=== PATIENT | female | born 1990 | race Caucasian/White ===

== ENCOUNTER → 2023-10-08 | Outpatient (CLI) | payer OTHER | LOC: M SLEEP 10:38 | PROVIDERS: ATTEND Psychiatry & Neurology Neurology | DX: R56.9 Unspecified convulsions (principal) ==

== ENCOUNTER 2023-10-26 19:50 | Emergency (ER) | payer OTHER ==
[~2023-10-26] VITALS: Ht 165.1 cm; Wt 90.5 kg
[2023-10-26 21:28] LABS: HEMATOCRIT 43.8 % (36.0-47.0); HEMOGLOBIN 16.3 g/dl (12.0-15.5); MEAN CORPUSCULAR HEMOGLOBIN 33.3 pg (27.0-33.0); MEAN CORPUSCULAR VOLUME 89.6 fl (80.0-96.0); PLATELET COUNT, AUTOMATED 318 10^3/uL (150-450); RED BLOOD COUNT 4.89 10^6/uL (4.00-5.40)
[2023-10-26 21:38] LABS: MEAN CORPUSCULAR HGB CONC 37.2 g/dl (32.0-36.5)
[2023-10-26 22:16] LABS: ALBUMIN 3.4 G/DL (3.2-5.2); ALKALINE PHOSPHATASE 67 U/L (46-116); ALT/SGPT 25 U/L (7.0-40); AST/SGOT 13 U/L (<34); BILIRUBIN,TOTAL 0.3 MG/DL (0.3-1.2); BLOOD UREA NITROGEN 5 MG/DL (9-23); CALCIUM LEVEL 9.2 MG/DL (8.5-10.1); CARBON DIOXIDE LEVEL 27 MMOL/L (20-31); CHLORIDE LEVEL 107 MMOL/L (98-107); GLOMERULAR FILTRATION RATE > 60.0 (>60); GLUCOSE, FASTING 92 MG/DL (60-100); POTASSIUM SERUM 2.9 MMOL/L (3.5-5.1); SODIUM LEVEL 142 MMOL/L (136-145)
[2023-10-26 22:48] LABS: MAGNESIUM LEVEL 1.8 MG/DL (1.8-2.4)
[2023-10-26] MEDS: KCL 10MEQ/100ML SWI (KRUN) 10 MEQ in IV 1 EA IV ONE (22:49)
[2023-10-26] MEDS: POTASSIUM CHLORIDE 10MEQ SR TABLET PO ONE (22:49)
[2023-10-26] MEDS: NS 1,000 ML IV ONE (22:49)
[2023-10-27 01:50] VITALS: BP 124/70; TEMP 98.2; O2SAT 99
== END 2023-10-27 02:16 | disposition home or self-care (01) ==
LOC: M ED 19:50
DX: E86.0 Dehydration (principal); R94.31 Abnormal electrocardiogram [ECG] [EKG]; E87.6 Hypokalemia; J45.909 Unspecified asthma, uncomplicated; M54.50 Low back pain, unspecified; G43.909 Migraine, unspecified, not intractable, without status migrainosus; G40.89 Other seizures; Z88.8 Allergy status to other drugs, medicaments and biological substances; Z88.6 Allergy status to analgesic agent; Z91.040 Latex allergy status; Z91.041 Radiographic dye allergy status

== ENCOUNTER 2023-12-21 14:37 | Inpatient (IN) | payer OTHER ==
[~2023-12-21] VITALS: Ht 165.1 cm; Wt 86.4 kg
[2023-12-21] MEDS ORDERED: NAPR220C23 PO (15:24)
[2023-12-21 15:56] LABS: BASO # 0.1 10^3/uL (0.0-0.2); BASO % 0.2 % (0.0-1.0); EOS % 0.1 % (0.0-3.0); HEMATOCRIT 51.4 % (36.0-47.0); HEMOGLOBIN 18.2 g/dl (12.0-15.5); LYMPH # 1.8 10^3/uL (1.5-5.0); LYMPH % 7.1 % (24.0-44.0); MEAN CORPUSCULAR HGB CONC 35.4 g/dl (32.0-36.5); MEAN CORPUSCULAR VOLUME 93.1 fl (80.0-96.0); MONO # 0.7 10^3/uL (0.0-0.8); MONO % 2.9 % (2.0-8.0); NEUTROPHILS # 22.3 10^3/uL (1.5-8.5); NEUTROPHILS % 89.1 % (36.0-66.0); PLATELET COUNT, AUTOMATED 385 10^3/uL (150-450); RED BLOOD COUNT 5.52 10^6/uL (4.00-5.40); WHITE BLOOD COUNT 25.1 10^3/uL (4.0-10.0)
[2023-12-21 16:31] LABS: HCG, SERUM QUALITATIVE NEGATIVE (NEGATIVE); LIPASE 26 U/L (12-53)
[2023-12-21 16:33] LABS: ALBUMIN 3.6 G/DL (3.2-5.2); ALKALINE PHOSPHATASE 78 U/L (46-116); ALT/SGPT 21 U/L (7.0-40); AST/SGOT 16 U/L (<34); BILIRUBIN,DIRECT 0.2 MG/DL (<0.4); BILIRUBIN,TOTAL 0.5 MG/DL (0.3-1.2); TOTAL PROTEIN 7.1 G/DL (5.7-8.2)
[2023-12-21 18:08] LABS: MAGNESIUM LEVEL 1.5 MG/DL (1.8-2.4)
[2023-12-21 18:09] LABS: CK-MB VALUE MASS < 1.0 NG/ML (<3.6)
[2023-12-21] MEDS: PANTOPRAZOLE 40MG VIAL IV ONE (18:09)
[2023-12-21] MEDS: NS 1,000 ML IV ONE (18:09)
[2023-12-21 18:21] LABS: PROCALCITONIN <0.04 ng/ml
[2023-12-21 18:22] LABS: CPK CREATINE PHOSPHOKINASE 45 U/L (34-145); MB/CK RELATIVE INDEX 2.22 (< OR =4)
[2023-12-21] MEDS: MAALOX 30 ML SUSP *UDC PO ONE (19:11)
[2023-12-21] MEDS ORDERED: VANCOMYCIN HCL IV ONE (19:35)
[2023-12-21] MEDS ORDERED: FLUID PLACE HOLDER IV ONE (19:35)
[2023-12-21] MEDS ORDERED: NS 1,000 ML IV SCH ×2 (19:50→21:45)
[2023-12-21] MEDS: ADVAIR HFA 115/21MCG INHALER INH SCH (20:00)
[2023-12-21 20:09] LABS: INR 1.15; PARTIAL THROMBOPLASTIN TIME 27.8 SECONDS (24.8-34.2); PROTHROMBIN TIME 14.4 SECONDS (12.5-14.5)
[2023-12-21] MEDS ORDERED: D 50CAP2 PO (20:13)
[2023-12-21] MEDS ORDERED: ADV250INH INH (20:13)
[2023-12-21] MEDS ORDERED: ALBU8.5H INH (20:13)
[2023-12-21] MEDS ORDERED: OMEP-173 PO (20:13)
[2023-12-21] MEDS ORDERED: LEVE750T5 PO (20:13)
[2023-12-21] MEDS ORDERED: CETI-24 PO (20:13)
[2023-12-21] MEDS ORDERED: LAMI1TAB7 PO (20:13)
[2023-12-21] MEDS ORDERED: LOSA25TA13 PO (20:13)
[2023-12-21] MEDS ORDERED: DICL100G10 TOP (20:13)
[2023-12-21] MEDS ORDERED: INCR1INH INH (20:13)
[2023-12-21] MEDS: CEFEPIME HCL 2 GM in D5W MINI-BAG PLUS 50 ML IV ONE (20:17)
[2023-12-21] MEDS: metroNIDAZOLE 500 MG in IV 1 EA IV ONE (20:51)
[2023-12-21] MEDS: MAG SULF 1GM/100ML (MAG RUN) 1 GM in IV 1 EA IV SCH (20:51)
[2023-12-21] MEDS: PROMETHAZINE 25MG/ML 1ML VIAL IM ONE (21:25)
[2023-12-21] MEDS: MORPHINE 2 MG/ML 1ML VIAL IV ONE (21:26)
[2023-12-21] MEDS: VANCOMYCIN HCL 1,000 MG, VIAL MATE ADAPTER 1 EACH in D5W 250 ML IV ONE ×2 (21:27→22:58)
[2023-12-21] MEDS ORDERED: FREM225A INJ (21:30)
[2023-12-21] MEDS ORDERED: HOME MED LIST COMPLETE! XX SCH (21:30)
[2023-12-21] MEDS ORDERED: IPRA0.00 INH (21:30)
[2023-12-21] MEDS ORDERED: SUMA50TA2 PO (21:30)
[2023-12-21] MEDS ORDERED: IPRATROPIUM 0.5MG/ALBUTEROL 2.5MG INH SOL UD 3ML (DUONEB) INH PRN (21:45)
[2023-12-21] MEDS ORDERED: PROMETHAZINE 25MG/ML 1ML VIAL IV PRN (21:45)
[2023-12-21] MEDS ORDERED: ALBUTEROL 90 MCG/ACT 8GM HFA INHALER INH PRN (21:45)
[2023-12-21] MEDS ORDERED: MORPHINE 2 MG/ML 1ML VIAL IV PRN ×2 (21:45)
[2023-12-21] MEDS: levETIRAcetam 250MG TABLET (KEPPRA) PO SCH (22:57)
[2023-12-21] MEDS: lamoTRIgine 100MG TAB PO SCH (22:57)
[2023-12-21] MEDS ORDERED: metroNIDAZOLE 500 MG in IV 1 EA IV SCH (23:00)
[2023-12-21] MEDS: SUMAtriptan SUCCINATE 25 MG TAB PO PRN (23:13)
[2023-12-22] MEDS: LR 1,000 ML IV SCH (00:06)
[2023-12-22] MEDS ORDERED: HYDROMORPHONE HCL 0.5 MG/ 0.5 ML SYRINGE IV PRN ×2 (00:20)
[2023-12-22 01:01] LABS: CK-MB VALUE MASS < 1.0 NG/ML (<3.6)
[2023-12-22 01:20] LABS: CPK CREATINE PHOSPHOKINASE 31 U/L (34-145); MB/CK RELATIVE INDEX 3.22 (< OR =4)
[2023-12-22] MEDS ORDERED: cefTRIAXone SOD 1 GM in D5W MINI-BAG PLUS 50 ML IV SCH (02:00)
[2023-12-22] MEDS ORDERED: CEFEPIME HCL 2 GM in D5W MINI-BAG PLUS 50 ML IV SCH (02:00)
[2023-12-22] MEDS ORDERED: PROMETHAZINE 25MG/ML 1ML VIAL IV PRN (03:00)
[2023-12-22 04:51] LABS: HEMATOCRIT 43.1 % (36.0-47.0); MEAN CORPUSCULAR HEMOGLOBIN 33.2 pg (27.0-33.0); MEAN CORPUSCULAR HGB CONC 35.5 g/dl (32.0-36.5); MEAN CORPUSCULAR VOLUME 93.5 fl (80.0-96.0); PLATELET COUNT, AUTOMATED 296 10^3/uL (150-450); RED BLOOD COUNT 4.61 10^6/uL (4.00-5.40); WHITE BLOOD COUNT 22.8 10^3/uL (4.0-10.0)
[2023-12-22 05:03] LABS: HEMOGLOBIN 15.3 g/dl (12.0-15.5)
[2023-12-22 05:23] LABS: ALBUMIN 2.8 G/DL (3.2-5.2); ALKALINE PHOSPHATASE 59 U/L (46-116); ALT/SGPT 17 U/L (7.0-40); AST/SGOT 12 U/L (<34); BILIRUBIN,TOTAL 1.1 MG/DL (0.3-1.2); BLOOD UREA NITROGEN 7 MG/DL (9-23); CALCIUM LEVEL 8.4 MG/DL (8.5-10.1); CARBON DIOXIDE LEVEL 25 MMOL/L (20-31); CHLORIDE LEVEL 105 MMOL/L (98-107); CREATININE FOR GFR 0.72 MG/DL (0.55-1.30); GLOMERULAR FILTRATION RATE > 60.0 (>60); GLUCOSE, FASTING 120 MG/DL (60-100); POTASSIUM SERUM 4.2 MMOL/L (3.5-5.1); SODIUM LEVEL 135 MMOL/L (136-145); TOTAL PROTEIN 5.8 G/DL (5.7-8.2)
[2023-12-22] MEDS: metroNIDAZOLE 500 MG in IV 1 EA IV SCH (06:17)
[2023-12-22] MEDS: HEPARIN SOD (PORCINE) 5000UNITS/ML 1ML VIAL/SYRINGE SQ SCH (06:22)
[2023-12-22] MEDS ORDERED: MORPHINE 4 MG/ML 1ML VIAL IV PRN (07:10)
[2023-12-22] MEDS: NS 1,000 ML IV ONE (07:29)
[2023-12-22] MEDS: CEFEPIME HCL 2 GM in D5W MINI-BAG PLUS 50 ML IV SCH (07:29)
[2023-12-22] MEDS ORDERED: LOSARTAN 25 MG TAB PO SCH (09:00)
[2023-12-22] MEDS: CETIRIZINE (ZyrTEC) 10 MG TAB PO SCH (09:08)
[2023-12-22] MEDS: OMEPRAZOLE 20MG CAP PO SCH (09:08)
[2023-12-22] MEDS: MORPHINE 2 MG/ML 1ML VIAL IV PRN (12:48)
[2023-12-22 14:51] VITALS: BP 109/75; TEMP 99.5; O2SAT 98
[2023-12-22] MEDS: PIPERACILLIN/TAZOBACTAM SOD 3.375 GM in D5W MINI-BAG PLUS 50 ML IV SCH (15:38)
[2023-12-22 16:38] VITALS: BP 120/79; TEMP 101.6; O2SAT 94
[2023-12-22] MEDS: diphenhydrAMINE 25MG CAP PO PRN (18:52)
[2023-12-22] MEDS: KETOROLAC 30 MG/ML 1ML VIAL IV PRN (18:58)
[2023-12-22 19:42] VITALS: BP 115/77; TEMP 100.6; O2SAT 94
[2023-12-22 22:15] VITALS: TEMP 98.6
[2023-12-23] VITALS (9 sets, daily range): BP systolic 102–136; BP diastolic 65–85; TEMP 97.5–100.9; O2SAT 95–98
[2023-12-23 07:04] LABS: HEMATOCRIT 39.5 % (36.0-47.0); HEMOGLOBIN 13.6 g/dl (12.0-15.5); MEAN CORPUSCULAR HEMOGLOBIN 32.5 pg (27.0-33.0); MEAN CORPUSCULAR HGB CONC 34.4 g/dl (32.0-36.5); MEAN CORPUSCULAR VOLUME 94.5 fl (80.0-96.0); PLATELET COUNT, AUTOMATED 229 10^3/uL (150-450); RED BLOOD COUNT 4.18 10^6/uL (4.00-5.40); WHITE BLOOD COUNT 18.1 10^3/uL (4.0-10.0)
[2023-12-23 07:22] LABS: ALBUMIN 2.4 G/DL (3.2-5.2); ALKALINE PHOSPHATASE 55 U/L (46-116); ALT/SGPT < 9 U/L (7.0-40); AST/SGOT < 8 U/L (<34); BLOOD UREA NITROGEN 8 MG/DL (9-23); CALCIUM LEVEL 7.9 MG/DL (8.5-10.1); CARBON DIOXIDE LEVEL 23 MMOL/L (20-31); CHLORIDE LEVEL 109 MMOL/L (98-107); CREATININE FOR GFR 0.68 MG/DL (0.55-1.30); GLOMERULAR FILTRATION RATE > 60.0 (>60); GLUCOSE, FASTING 92 MG/DL (60-100); POTASSIUM SERUM 3.8 MMOL/L (3.5-5.1); SODIUM LEVEL 138 MMOL/L (136-145); TOTAL PROTEIN 5.3 G/DL (5.7-8.2)
[2023-12-23] MEDS: PANTOPRAZOLE 40MG VIAL IV SCH (08:08)
[2023-12-24 03:49] VITALS: BP 123/85; TEMP 98.4; O2SAT 92
[2023-12-24 07:13] LABS: HEMATOCRIT 35.1 % (36.0-47.0); HEMOGLOBIN 12.2 g/dl (12.0-15.5); MEAN CORPUSCULAR HEMOGLOBIN 32.6 pg (27.0-33.0); MEAN CORPUSCULAR HGB CONC 34.8 g/dl (32.0-36.5); MEAN CORPUSCULAR VOLUME 93.9 fl (80.0-96.0); PLATELET COUNT, AUTOMATED 234 10^3/uL (150-450); RED BLOOD COUNT 3.74 10^6/uL (4.00-5.40); WHITE BLOOD COUNT 12.3 10^3/uL (4.0-10.0)
[2023-12-24 07:59] LABS: ALBUMIN 2.2 G/DL (3.2-5.2); ALKALINE PHOSPHATASE 55 U/L (46-116); ALT/SGPT 10 U/L (7.0-40); AST/SGOT < 8 U/L (<34); BILIRUBIN,TOTAL 0.8 MG/DL (0.3-1.2); BLOOD UREA NITROGEN < 5 MG/DL (9-23); CALCIUM LEVEL 8.5 MG/DL (8.5-10.1); CARBON DIOXIDE LEVEL 26 MMOL/L (20-31); CHLORIDE LEVEL 111 MMOL/L (98-107); CREATININE FOR GFR 0.68 MG/DL (0.55-1.30); GLOMERULAR FILTRATION RATE > 60.0 (>60); GLUCOSE, FASTING 88 MG/DL (60-100); POTASSIUM SERUM 3.9 MMOL/L (3.5-5.1); SODIUM LEVEL 143 MMOL/L (136-145); TOTAL PROTEIN 5.3 G/DL (5.7-8.2)
[2023-12-24 08:00] VITALS: BP 125/87; TEMP 97; O2SAT 95
[2023-12-24 12:00] VITALS: BP 126/87; TEMP 96.8; O2SAT 97
[2023-12-24 17:42] VITALS: BP 128/87; TEMP 97.4; O2SAT 98
[2023-12-24 20:00] VITALS: BP 130/90; TEMP 98.2; O2SAT 98
[2023-12-24 23:54] VITALS: BP 112/53; TEMP 99.6; O2SAT 94
[2023-12-25 03:47] VITALS: BP 175/67; TEMP 97.8; TEMP 98.2; O2SAT 100
[2023-12-25 07:13] LABS: BASO % 0.2 % (0.0-1.0); EOS # 0.1 10^3/uL (0.0-0.5); EOS % 0.9 % (0.0-3.0); HEMATOCRIT 34.4 % (36.0-47.0); LYMPH # 1.9 10^3/uL (1.5-5.0); LYMPH % 20.9 % (24.0-44.0); MEAN CORPUSCULAR HEMOGLOBIN 32.5 pg (27.0-33.0); MEAN CORPUSCULAR HGB CONC 34.9 g/dl (32.0-36.5); MEAN CORPUSCULAR VOLUME 93.2 fl (80.0-96.0); MONO # 0.7 10^3/uL (0.0-0.8); NEUTROPHILS # 6.3 10^3/uL (1.5-8.5); NEUTROPHILS % 69.4 % (36.0-66.0); PLATELET COUNT, AUTOMATED 270 10^3/uL (150-450); RED BLOOD COUNT 3.69 10^6/uL (4.00-5.40)
[2023-12-25 07:51] LABS: BLOOD UREA NITROGEN < 5 MG/DL (9-23); CARBON DIOXIDE LEVEL 26 MMOL/L (20-31); CHLORIDE LEVEL 110 MMOL/L (98-107); CREATININE FOR GFR 0.62 MG/DL (0.55-1.30); GLOMERULAR FILTRATION RATE > 60.0 (>60); GLUCOSE, FASTING 85 MG/DL (60-100); MAGNESIUM LEVEL 1.7 MG/DL (1.8-2.4); POTASSIUM SERUM 3.6 MMOL/L (3.5-5.1); SODIUM LEVEL 141 MMOL/L (136-145)
[2023-12-25 08:00] VITALS: BP 149/91; TEMP 98.6; O2SAT 95
[2023-12-25 12:00] VITALS: BP 143/88; TEMP 98.1; O2SAT 95
[2023-12-25] MEDS ORDERED: MAGN500C2 PO (13:44)
[2023-12-25] MEDS ORDERED: PROBCAP14 PO (13:44)
[2023-12-25] MEDS ORDERED: AMOX875T2 PO (13:44)
== END 2023-12-25 15:44 | disposition home or self-care (01) | DRG 720 ==
LOC: M ED 14:37 → M ED INP 21:40 → M MSPAV 12-22 14:49
PROVIDERS: ADMIT Internal Medicine; ATTEND Student in an Organized Health Care Education/Training Program
DX: A41.9 Sepsis, unspecified organism (principal); E87.20 Acidosis, unspecified; K57.20 Diverticulitis of large intestine with perforation and abscess without bleeding; E83.42 Hypomagnesemia; G47.33 Obstructive sleep apnea (adult) (pediatric); J45.909 Unspecified asthma, uncomplicated; G43.909 Migraine, unspecified, not intractable, without status migrainosus; G40.909 Epilepsy, unspecified, not intractable, without status epilepticus; R65.20 Severe sepsis without septic shock; R94.31 Abnormal electrocardiogram [ECG] [EKG]; I10 Essential (primary) hypertension; N39.0 Urinary tract infection, site not specified; E66.9 Obesity, unspecified; Z91.040 Latex allergy status; E87.6 Hypokalemia; Z87.74 Personal history of (corrected) congenital malformations of heart and circulatory system; Z88.8 Allergy status to other drugs, medicaments and biological substances; Z79.899 Other long term (current) drug therapy; Z88.6 Allergy status to analgesic agent; Z91.041 Radiographic dye allergy status; Z68.31 Body mass index [BMI] 31.0-31.9, adult

== ENCOUNTER → 2024-04-21 | Outpatient (CLI) | payer OTHER ==
[~2024-04-21] MED LIST: ADV250INH INH; ALBU2.5V10 INH; ALBU8.5H INH; AMOX875T2 PO; CETI-24 PO; D 50CAP2 PO; DICL100G10 TOP; DICL20GE TOP; FREM225A INJ; INCR1INH INH; IPRA0.00 INH; LAMI1TAB7 PO; LEVE750T5 PO; LOSA25TA13 PO; MAGN500C2 PO; MAGN500T2 PO; MECL-86 PO; MELO15TA28 PO; NAPR220C23 PO; OMEP-173 PO; PROBCAP14 PO; SUMA50TA2 PO; TIZA10TA PO
[2024-04-21 10:32] LABS: CHOLESTEROL RISK RATIO 4.29 (<5); HDL CHOLESTEROL 40.5 MG/DL (>40); LDL CHOLESTEROL 116.1 MG/DL (<100); NON-HDL-C 133.5 MG/DL
[2024-04-21 10:33] LABS: THYROID STIMULATING HORMONE 1.146 uIU/ML (0.55-4.78); TOTAL 25(OH) VITAMIN D 84.1 NG/ML (20.0-100.0)
== END ==
LOC: M LAB 09:03
PROVIDERS: ATTEND Nurse Practitioner Family
DX: E55.9 Vitamin D deficiency, unspecified (principal)

== ENCOUNTER → 2025-01-19 | Outpatient (CLI) | payer OTHER ==
[~2025-01-19] MED LIST changes: -ADV250INH INH; +ADVA1AER9 INH
== END ==
LOC: M RAD 08:43
PROVIDERS: ATTEND Physician Assistant
DX: R10.13 Epigastric pain (principal); K82.4 Cholesterolosis of gallbladder; K76.0 Fatty (change of) liver, not elsewhere classified; K82.8 Other specified diseases of gallbladder

== ENCOUNTER → 2025-03-09 | Outpatient (RCR) | payer OTHER ==
[~2025-03-09] MED LIST changes: +DILT-44 PO; +FIBE62TA; +FLUTISP; +METO1TAB32 PO; +POLY510P14; +QC F0.52 PO; +VITA200016 PO
== END ==
LOC: M PT 02-11 12:47
PROVIDERS: ATTEND Physician Assistant
DX: M25.562 Pain in left knee (principal)

== ENCOUNTER → 2025-03-11 | Outpatient (CLI) | payer OTHER | LOC: M SLEEP HO 11:14 | PROVIDERS: ATTEND Nurse Practitioner Adult Health | DX: G47.33 Obstructive sleep apnea (adult) (pediatric) (principal) | CPT/HCPCS: 71046; G0399 ==

== ENCOUNTER 2025-03-17 14:51 | Outpatient (RCR) | payer OTHER | END 2025-04-09 | LOC: M PT 14:51 | PROVIDERS: ATTEND Physician Assistant | DX: M25.562 Pain in left knee (principal) ==